=== PATIENT | male | born 1950 | race Caucasian/White ===

== ENCOUNTER 2020-09-29 16:33 | Emergency (ER) | payer OTHER ==
[~2020-09-29] VITALS: Ht 182.9 cm; Wt 90.7 kg
[2020-09-29] MEDS ORDERED: EPINEPHrine HCL 1 MG/10 ML SYRG IV ONE (16:34)
== END 2020-09-29 20:58 ==
LOC: ER 16:33 → EDBD 16:33 → ER 20:58
DX: S02.91XA Unspecified fracture of skull, initial encounter for closed fracture (principal); S12.8XXA Fracture of other parts of neck, initial encounter; S30.1XXA Contusion of abdominal wall, initial encounter; S98.112A Complete traumatic amputation of left great toe, initial encounter; I46.8 Cardiac arrest due to other underlying condition; V49.9XXA Car occupant (driver) (passenger) injured in unspecified traffic accident, initial encounter; Y93.I9 Activity, other involving external motion; Y92.488 Other paved roadways as the place of occurrence of the external cause; Y99.8 Other external cause status
CPT/HCPCS: 92950; 99285; J0171